=== PATIENT | female | born 1950 | race Caucasian/White ===

== ENCOUNTER 2023-01-31 22:58 | Emergency (ER) | payer MEDICARE, OTHER ==
[~2023-01-31] VITALS: Ht 172.7 cm; Wt 95.3 kg
[~2023-01-31 22:58] MED LIST: AUBAGIO PO; BACL20TA PO; BISA10SU8 RC; CYCL30DR EACHEYE; DIAZ5TAB PO; DIPH25CA83 PO; DOCU250C14 PO; FENT1PAT10 TD; HYDR4TAB57 PO; MAG30ORA PO; MAGN400O21 PO; NA P133E RC; OXYC1TAB8 PO; PREG50CA PO; RIVA10TA PO; SENN-261 PO; ZOLP5TAB8 PO
[2023-01-31] MEDS ORDERED: IV NS 0.9% 1,000 ML IV ONE (23:30)
[2023-02-01 00:22] LABS: BASOPHILS # (AUTO) 0.1 K/uL (0.0-0.2); BASOPHILS % (AUTO) 1.2 % (0.0-2.0); EOSINOPHILS # (AUTO) 0.3 K/uL (0.0-0.7); EOSINOPHILS % (AUTO) 3.8 % (0.0-6.0); HEMATOCRIT 41 % (33-45); HEMOGLOBIN 13.2 g/dL (11.5-14.8); LYMPHOCYTES # (AUTO) 2.5 K/uL (0.8-4.8); LYMPHOCYTES % (AUTO) 35.8 % (20.0-44.0); MEAN CORPUSCULAR HEMOGLOBIN 28 PG (26.0-33.0); MEAN CORPUSCULAR HGB CONC 32 g/dl (31.0-36.0); MEAN CORPUSCULAR VOLUME 86 fL (82-100); MONOCYTES # (AUTO) 1.2 K/uL (0.1-1.30); MONOCYTES % (AUTO) 16.9 % (2.0-12.0); NEUTROPHILS % (AUTO) 42.3 % (43.0-81.0); PLATELET COUNT (AUTO) 271 K/uL (150-450); RED BLOOD CELL COUNT(AUTO) 4.76 MIL/uL (4.0-5.2); RED CELL DISTRIBUTION WIDTH 17.6 % (11.5-15.0)
[2023-02-01] MEDS ORDERED: IV NS 0.9% 1,000 ML BAG IV ONE (00:30)
[2023-02-01 00:41] LABS: APPEARANCE,URINE CLEAR (CLEAR); BILIRUBIN,URINE NEGATIVE (NEGATIVE); BLOOD, URINE TRACE-INTA Ery/uL (NEGATIVE); COLOR,URINE YELLOW (YELLOW); KETONES,URINE NEGATIVE (NEGATIVE); LEUKOCYTE ESTERASE ,URINE TRACE (NEGATIVE); NITRITE, URINE POSITIVE (NEGATIVE); PROTEIN,URINE NEGATIVE (NEGATIVE); UGLUCOSE NEGATIVE (NEGATIVE); UROBILINOGEN,URINE 0.2 EU/dL (0.2)
[2023-02-01 01:44] LABS: ALANINE AMINOTRANSFERASE 23 U/L (12-78); ALBUMIN 3.5 g/dL (3.4-5.0); ALKALINE PHOSPHATASE 114 U/L (46-116); ASPARTATE AMINOTRANSFERASE 36 U/L (15-37); BILIRUBIN,TOTAL 0.6 mg/dL (0.2-1.0); CALCIUM, SERUM 9.3 mg/dL (8.5-10.1); CARBON DIOXIDE 26 mmol/L (21-32); CHLORIDE 101 mmol/L (98-107); CREATININE 0.9 mg/dL (0.6-1.3); GLUCOSE 111 mg/dL (74-106); POTASSIUM 2.9 mmol/L (3.5-5.1); SODIUM SERUM 140 mmol/L (136-145); TOTAL PROTEIN, SERUM 7.1 g/dL (6.4-8.2); UREA NITROGEN, BLOOD 33 mg/dL (7-18)
[2023-02-01 01:48] LABS: SALICYLATE 1.5 mg/dL (2.8-20.0)
[2023-02-01 01:49] LABS: ACETAMINOPHEN <10 ug/ml (10-30)
[2023-02-01] MEDS ORDERED: POTASSIUM CHLORIDE 20 MEQ TAB.PRT.SR PO ONE ×2 (02:00→02:20)
[2023-02-01 02:09] LABS: BARBITURATE, URINE NEGATIVE (NEGATIVE)
[2023-02-01 02:10] LABS: AMPHETAMINE, URINE NEGATIVE (NEGATIVE); BENZODIAZEPINE, URINE NEGATIVE (NEGATIVE); CANNABINOID, URINE NEGATIVE (NEGATIVE); COCCAINE, URINE NEGATIVE (NEGATIVE); OPIATE, URINE POSITIVE (NEGATIVE); PHENCYCLIDINE SCREEN,URINE NEGATIVE (NEGATIVE)
[2023-02-01 02:16] LABS: ADD URINE CULTURE YES; BACTERIA,URINE 2+ /HPF (None Seen); RBC,URINE 0-2 /HPF (0-2)
[2023-02-01] MEDS ORDERED: POTASSIUM CHLORIDE 10 MEQ TABLET.SA ONE (02:20)
[2023-02-01 02:34] LABS: EOSINOPHILS % (MANUAL) 4 % (0-4); LYMPHOCYTES % (MANUAL) 35 % (16-48); MONOCYTES % (MANUAL) 21 % (0-11.0); NEUTROPHILS % (MANUAL) 40 (42-76); PLATELET ESTIMATE ADEQUATE
[2023-02-01] MEDS ORDERED: NALO4SPR BNOSTRILS (04:01)
[2023-02-01 04:55] VITALS: BP 140/97; TEMP 98.1; O2SAT 98
[2023-02-06] MEDS ORDERED: PREG200C PO (15:09)
== END 2023-02-01 04:55 | disposition home or self-care (01) ==
LOC: ER 23:05
DX: T40.601A Poisoning by unspecified narcotics, accidental (unintentional), initial encounter (principal); R53.1 Weakness; R51.9 Headache, unspecified; I10 Essential (primary) hypertension; E11.9 Type 2 diabetes mellitus without complications; Z98.890 Other specified postprocedural states; Z79.899 Other long term (current) drug therapy; Z88.2 Allergy status to sulfonamides; Z88.1 Allergy status to other antibiotic agents; Y92.89 Other specified places as the place of occurrence of the external cause
CPT/HCPCS: 99285; 70450; 71045; 93005; 36415; 80307; 96360; 85025; 80048; 87086; 80076; 83735; 81001; 80143; 85007; J7030

== ENCOUNTER 2023-02-04 10:11 | Inpatient (IN) | payer MEDICARE, OTHER ==
[~2023-02-04] VITALS: Ht 172.7 cm; Wt 93.0 kg
[~2023-02-04 10:11] MED LIST changes: +NALO4SPR BNOSTRILS
[2023-02-04 11:04] LABS: CALCIUM, SERUM 9.2 mg/dL (8.5-10.1); CARBON DIOXIDE 24 mmol/L (21-32); CHLORIDE 104 mmol/L (98-107); CREATININE 1.1 mg/dL (0.6-1.3); GLUCOSE 106 mg/dL (74-106); SODIUM SERUM 141 mmol/L (136-145); UREA NITROGEN, BLOOD 27 mg/dL (7-18)
[2023-02-04 11:14] LABS: POTASSIUM 2.8 mmol/L (3.5-5.1)
[2023-02-04 11:18] LABS: ALANINE AMINOTRANSFERASE 20 U/L (12-78); ALBUMIN 3.4 g/dL (3.4-5.0); ALKALINE PHOSPHATASE 101 U/L (46-116); ASPARTATE AMINOTRANSFERASE 22 U/L (15-37); BILIRUBIN,DIRECT 0.1 mg/dL (0.0-0.2); BILIRUBIN,TOTAL 0.5 mg/dL (0.2-1.0); NT-PRO BNP 1226 pg/mL (0-125); TOTAL PROTEIN, SERUM 6.8 g/dL (6.4-8.2)
[2023-02-04 11:21] LABS: BASOPHILS % (AUTO) 0.7 % (0.0-2.0); EOSINOPHILS # (AUTO) 0.3 K/uL (0.0-0.7); HEMATOCRIT 41 % (33-45); HEMOGLOBIN 13.2 g/dL (11.5-14.8); LYMPHOCYTES # (AUTO) 1.7 K/uL (0.8-4.8); LYMPHOCYTES % (AUTO) 26.5 % (20.0-44.0); MEAN CORPUSCULAR HEMOGLOBIN 28 PG (26.0-33.0); MEAN CORPUSCULAR HGB CONC 32 g/dl (31.0-36.0); MEAN CORPUSCULAR VOLUME 87 fL (82-100); MONOCYTES # (AUTO) 0.8 K/uL (0.1-1.30); MONOCYTES % (AUTO) 12.9 % (2.0-12.0); NEUTROPHILS # (AUTO) 3.6 K/uL (1.8-8.9); NEUTROPHILS % (AUTO) 55.9 % (43.0-81.0); PLATELET COUNT (AUTO) 248 K/uL (150-450); RED BLOOD CELL COUNT(AUTO) 4.72 MIL/uL (4.0-5.2); RED CELL DISTRIBUTION WIDTH 17.4 % (11.5-15.0); WHITE BLOOD COUNT (AUTO) 6.4 K/uL (4.3-11.0)
[2023-02-04] MEDS ORDERED: ROSU10TA2 PO (11:55)
[2023-02-04] MEDS ORDERED: NAPR220T66 PO (11:55)
[2023-02-04] MEDS ORDERED: PREG200C PO (11:55)
[2023-02-04] MEDS ORDERED: TOPI100T PO (11:55)
[2023-02-04] MEDS ORDERED: CHOL200059 PO (11:55)
[2023-02-04] MEDS ORDERED: HYDR25TA4 PO (11:55)
[2023-02-04] MEDS ORDERED: CYAN200017 PO (11:55)
[2023-02-04] MEDS ORDERED: BIOTIN GUMMIES PO (11:55)
[2023-02-04] MEDS ORDERED: DIPH25TA25 PO (11:55)
[2023-02-04] MEDS ORDERED: OXYC-133 PO (11:55)
[2023-02-04] MEDS ORDERED: KESIMPTA IJ (11:55)
[2023-02-04] MEDS ORDERED: TIZA4TAB11 PO (11:55)
[2023-02-04] MEDS ORDERED: [UNRECOGNIZED DRUG - OTHER] PO (11:55)
[2023-02-04] MEDS ORDERED: LACT1CAP97 PO (11:55)
[2023-02-04] MEDS ORDERED: POTASSIUM CHLORIDE 20 MEQ POWDER PACKET PO ONE (12:00)
[2023-02-04] MEDS ORDERED: POTASSIUM CHLORIDE 20 MEQ POWDER PACKET ONE (12:17)
[2023-02-04] MEDS ORDERED: oxyCODONE/APAP (5/325 MG) 1 UDTAB TABLET PO ONE (13:30)
[2023-02-04] MEDS ORDERED: oxyCODONE/APAP (5/325 MG) 1 UDTAB TABLET ONE (13:35)
[2023-02-04 16:30] VITALS: BP 152/91; TEMP 97.5; O2SAT 98
[2023-02-04] MEDS ORDERED: ONDANSETRON HCL/PF 4 MG/2 ML VIAL IVP PRN (17:00)
[2023-02-04] MEDS ORDERED: ACETAMINOPHEN 325 MG TABLET PO PRN (17:00)
[2023-02-04] MEDS ORDERED: ZOLPIDEM TARTRATE 5 MG TABLET PO PRN (17:00)
[2023-02-04] MEDS ORDERED: MAGNESIUM HYDROXIDE 30 ML UDC PO PRN (17:00)
[2023-02-04] MEDS ORDERED: IV 1/2NS 1000 ML 1,000 ML IV PRN (17:00)
[2023-02-04] MEDS ORDERED: MAG HYDROX/AL HYDROX/SIMETH 30 ML UDC PO PRN (17:00)
[2023-02-04] MEDS ORDERED: Z GUARD REMEDY 4 OZ OINT TP PRN (17:00)
[2023-02-04] MEDS: ENOXAPARIN SODIUM 40 MG/0.4 ML DISP.SYRIN SQ SCH ×2 (18:45→18:52)
[2023-02-04] MEDS ORDERED: *INSULIN REGULAR(HUMULIN R)HUM 100 UNIT/ML VIAL SQ PRN (19:30)
[2023-02-04] MEDS ORDERED: DEXTROSE 50%-WATER 50 ML DISP.SYRIN IV PRN (19:30)
[2023-02-04 20:00] VITALS: BP 121/63; TEMP 98; O2SAT 96
[2023-02-04] MEDS: oxyCODONE/APAP (5/325 MG) 1 UDTAB TABLET PO SCH (20:22)
[2023-02-04] MEDS ORDERED: PREGABALIN 100 MG CAPSULE PO SCH (21:00)
[2023-02-04] MEDS: BLOOD SUGAR DIAGNOSTIC 1 EACH STRIP VI SCH (22:02)
[2023-02-04] MEDS ORDERED: MORPHINE SULFATE IR 15 MG TABLET PO PRN (22:30)
[2023-02-04] MEDS: MORPHINE SULFATE SR 15 MG TABLET.SA PO SCH (22:57)
[2023-02-05] VITALS (7 sets, daily range): BP systolic 117–145; BP diastolic 53–111; TEMP 97.7–98.6; O2SAT 94–98
[2023-02-05] MEDS: BLOOD SUGAR DIAGNOSTIC 1 EACH STRIP VI SCH ×4 (07:36→21:35)
[2023-02-05 07:51] LABS: BASOPHILS % (AUTO) 0.7 % (0.0-2.0); EOSINOPHILS # (AUTO) 0.3 K/uL (0.0-0.7); HEMATOCRIT 38 % (33-45); HEMOGLOBIN 12.3 g/dL (11.5-14.8); LYMPHOCYTES # (AUTO) 1.3 K/uL (0.8-4.8); LYMPHOCYTES % (AUTO) 24.2 % (20.0-44.0); MEAN CORPUSCULAR HEMOGLOBIN 28 PG (26.0-33.0); MEAN CORPUSCULAR HGB CONC 33 g/dl (31.0-36.0); MEAN CORPUSCULAR VOLUME 86 fL (82-100); MONOCYTES # (AUTO) 0.8 K/uL (0.1-1.30); MONOCYTES % (AUTO) 14.6 % (2.0-12.0); NEUTROPHILS # (AUTO) 3.1 K/uL (1.8-8.9); NEUTROPHILS % (AUTO) 55.5 % (43.0-81.0); PLATELET COUNT (AUTO) 227 K/uL (150-450); RED BLOOD CELL COUNT(AUTO) 4.39 MIL/uL (4.0-5.2); RED CELL DISTRIBUTION WIDTH 17.6 % (11.5-15.0); WHITE BLOOD COUNT (AUTO) 5.5 K/uL (4.3-11.0)
[2023-02-05 07:53] LABS: CALCIUM, SERUM 8.4 mg/dL (8.5-10.1); CARBON DIOXIDE 26 mmol/L (21-32); CHLORIDE 107 mmol/L (98-107); CREATININE 0.8 mg/dL (0.6-1.3); GLUCOSE 87 mg/dL (74-106); PHOSPHORUS 4.2 mg/dL (2.5-4.9); POTASSIUM 3.3 mmol/L (3.5-5.1); SODIUM SERUM 143 mmol/L (136-145); UREA NITROGEN, BLOOD 25 mg/dL (7-18)
[2023-02-05 08:39] LABS: THYROID STIMULATING HORMONE 2.712 uIU/mL (0.358-3.74)
[2023-02-05] MEDS ORDERED: [UNRECOGNIZED DRUG - OTHER] PO SCH (09:00)
[2023-02-05] MEDS: ASPIRIN 81 MG TAB.CHEW PO SCH (09:05)
[2023-02-05] MEDS: PREGABALIN 100 MG CAPSULE PO SCH ×3 (09:05→16:13)
[2023-02-05] MEDS: POTASSIUM CHLORIDE 20 MEQ TAB.PRT.SR PO SCH ×3 (09:05→12:38)
[2023-02-05] MEDS: ATORVASTATIN 10 MG TABLET PO SCH (09:05)
[2023-02-05] MEDS: PANTOPRAZOLE 40 MG TABLET.DR PO SCH (09:06)
[2023-02-05] MEDS: CHOLECALCIFEROL 1,000 UNIT TABLET (VIT D3) PO SCH (09:06)
[2023-02-05] MEDS: CYANOCOBALAMIN 500 MCG TABLET PO SCH ×2 (09:06→16:13)
[2023-02-05] MEDS: oxyCODONE/APAP (5/325 MG) 1 UDTAB TABLET PO SCH ×4 (09:06→21:33)
[2023-02-05] MEDS: MORPHINE SULFATE SR 15 MG TABLET.SA PO SCH ×2 (09:06→16:12)
[2023-02-05 09:07] LABS: THYROID STIMULATING HORMONE 2.784 uIU/mL (0.358-3.74)
[2023-02-05] MEDS: TOPIRAMATE 100 MG TABLET PO SCH ×2 (09:13→16:12)
[2023-02-06] VITALS: BP 110/69; TEMP 98; O2SAT 96
[2023-02-06] MEDS ORDERED: oxyCODONE/APAP (5/325 MG) 1 UDTAB TABLET PO PRN
[2023-02-06 04:00] VITALS: BP 121/71; TEMP 98.2; O2SAT 97
[2023-02-06] MEDS: INSULIN REGULAR, HUMAN 100 UNIT/ML 3 ML VIAL SQ PRN ×2 (06:35→12:33)
[2023-02-06] MEDS: BLOOD SUGAR DIAGNOSTIC 1 EACH STRIP VI SCH ×2 (06:35→12:32)
[2023-02-06 06:56] LABS: BASOPHILS % (AUTO) 0.9 % (0.0-2.0); EOSINOPHILS # (AUTO) 0.3 K/uL (0.0-0.7); EOSINOPHILS % (AUTO) 6.7 % (0.0-6.0); HEMATOCRIT 37 % (33-45); LYMPHOCYTES # (AUTO) 1.7 K/uL (0.8-4.8); LYMPHOCYTES % (AUTO) 34.3 % (20.0-44.0); MEAN CORPUSCULAR HEMOGLOBIN 28 PG (26.0-33.0); MEAN CORPUSCULAR HGB CONC 33 g/dl (31.0-36.0); MEAN CORPUSCULAR VOLUME 86 fL (82-100); MONOCYTES # (AUTO) 0.8 K/uL (0.1-1.30); MONOCYTES % (AUTO) 16.2 % (2.0-12.0); NEUTROPHILS % (AUTO) 41.9 % (43.0-81.0); PLATELET COUNT (AUTO) 221 K/uL (150-450); RED CELL DISTRIBUTION WIDTH 17.3 % (11.5-15.0); WHITE BLOOD COUNT (AUTO) 4.9 K/uL (4.3-11.0)
[2023-02-06 07:00] VITALS: BP 135/85; TEMP 97.9; O2SAT 97
[2023-02-06 07:18] LABS: ALANINE AMINOTRANSFERASE 21 U/L (12-78); ALBUMIN 2.6 g/dL (3.4-5.0); ALKALINE PHOSPHATASE 84 U/L (46-116); ASPARTATE AMINOTRANSFERASE 29 U/L (15-37); BILIRUBIN,TOTAL 0.3 mg/dL (0.2-1.0); CALCIUM, SERUM 8.5 mg/dL (8.5-10.1); CARBON DIOXIDE 26 mmol/L (21-32); CHLORIDE 108 mmol/L (98-107); CREATININE 0.9 mg/dL (0.6-1.3); GLUCOSE 89 mg/dL (74-106); PHOSPHORUS 3.7 mg/dL (2.5-4.9); POTASSIUM 3.9 mmol/L (3.5-5.1); SODIUM SERUM 143 mmol/L (136-145); TOTAL PROTEIN, SERUM 5.8 g/dL (6.4-8.2); UREA NITROGEN, BLOOD 20 mg/dL (7-18)
[2023-02-06] MEDS: PANTOPRAZOLE 40 MG TABLET.DR PO SCH (08:07)
[2023-02-06] MEDS: ATORVASTATIN 10 MG TABLET PO SCH (08:57)
[2023-02-06] MEDS: ASPIRIN 81 MG TAB.CHEW PO SCH ×2 (08:57→09:00)
[2023-02-06] MEDS: PREGABALIN 100 MG CAPSULE PO SCH ×2 (08:58→14:20)
[2023-02-06] MEDS: MORPHINE SULFATE SR 15 MG TABLET.SA PO SCH (08:58)
[2023-02-06] MEDS: TOPIRAMATE 100 MG TABLET PO SCH (08:58)
[2023-02-06] MEDS: CHOLECALCIFEROL 1,000 UNIT TABLET (VIT D3) PO SCH (08:59)
[2023-02-06] MEDS: CYANOCOBALAMIN 500 MCG TABLET PO SCH (08:59)
[2023-02-06] MEDS: oxyCODONE/APAP (5/325 MG) 1 UDTAB TABLET PO SCH ×2 (09:02→14:21)
[2023-02-06 10:57] LABS: EOSINOPHILS % (MANUAL) 4 % (0-4); LYMPHOCYTES % (MANUAL) 38 % (16-48); MONOCYTES % (MANUAL) 13 % (0-11.0); NEUTROPHILS % (MANUAL) 45 (42-76); PLATELET ESTIMATE ADEQUATE
[2023-02-06] MEDS ORDERED: PREG100C PO (15:07)
[2023-02-06] MEDS ORDERED: PREG200C PO (15:09)
== END 2023-02-06 16:40 | disposition home or self-care (01) | DRG 281 ==
LOC: ER 10:11 → TELE 16:05
PROVIDERS: ADMIT Student in an Organized Health Care Education/Training Program; ATTEND Student in an Organized Health Care Education/Training Program
DX: I95.1 Orthostatic hypotension (principal); I21.A1 Myocardial infarction type 2; F11.20 Opioid dependence, uncomplicated; G35 Multiple sclerosis; I10 Essential (primary) hypertension; E11.9 Type 2 diabetes mellitus without complications; M19.90 Unspecified osteoarthritis, unspecified site; Z96.641 Presence of right artificial hip joint; Z96.651 Presence of right artificial knee joint; Z90.49 Acquired absence of other specified parts of digestive tract; Z88.2 Allergy status to sulfonamides; Z88.6 Allergy status to analgesic agent; Z91.018 Allergy to other foods; Z79.01 Long term (current) use of anticoagulants; Z79.899 Other long term (current) drug therapy; G89.29 Other chronic pain; E87.6 Hypokalemia; E86.0 Dehydration; M85.80 Other specified disorders of bone density and structure, unspecified site; E66.9 Obesity, unspecified; I25.10 Atherosclerotic heart disease of native coronary artery without angina pectoris; Z86.73 Personal history of transient ischemic attack (TIA), and cerebral infarction without residual deficits; Z82.49 Family history of ischemic heart disease and other diseases of the circulatory system; R79.89 Other specified abnormal findings of blood chemistry; Z87.09 Personal history of other diseases of the respiratory system; Z93.0 Tracheostomy status
CPT/HCPCS: 36415; 71045-TC; 80048-TC; 80053-TC; 80061-TC; 80076-TC; 82962-TC; 83735-TC; 83880; 84100-TC; 84439-TC; 84443-TC; 84484-TC; 85025-TC; 93307-TC; 97112-TC; 97530-TC; A4223; G0378; J1650; J1815; J3490

== ENCOUNTER 2025-01-25 19:24 | Emergency (ER) | payer MEDICARE, OTHER ==
[~2025-01-25] VITALS: Ht 175.3 cm; Wt 108.9 kg
[~2025-01-25 19:24] MED LIST changes: -AUBAGIO PO; -BACL20TA PO; +BIOTIN GUMMIES PO; -BISA10SU8 RC; +CHOL200059 PO; +CYAN200017 PO; -CYCL30DR EACHEYE; -DIAZ5TAB PO; -DIPH25CA83 PO; +DIPH25TA25 PO; -DOCU250C14 PO; -FENT1PAT10 TD; +HYDR25TA4 PO; -HYDR4TAB57 PO; +KESIMPTA IJ; +LACT1CAP97 PO; -MAG30ORA PO; -MAGN400O21 PO; -NA P133E RC; -NALO4SPR BNOSTRILS; +NAPR220T66 PO; +OXYC-133 PO; -OXYC1TAB8 PO; +PREG200C PO; -PREG50CA PO; -RIVA10TA PO; +ROSU10TA2 PO; -SENN-261 PO; +TIZA4TAB11 PO; +TOPI100T PO; -ZOLP5TAB8 PO; +[UNRECOGNIZED DRUG - OTHER] PO
[2025-01-25 21:44] LABS: APPEARANCE,URINE SLIGHTLY CLOUDY (CLEAR); BLOOD, URINE NEGATIVE Ery/uL (NEGATIVE); LEUKOCYTE ESTERASE ,URINE 2+ (NEGATIVE); NITRITE, URINE POSITIVE (NEGATIVE); UGLUCOSE NEGATIVE (NEGATIVE)
[2025-01-25] MEDS ORDERED: LEVO500T90 PO (21:48)
[2025-01-25 21:55] LABS: ADD URINE CULTURE YES; SQUAMOUS EPITHELIAL CELL,UR Many /HPF (None Seen)
[2025-01-25 23:04] VITALS: BP 135/81; TEMP 98.7; O2SAT 95
== END 2025-01-25 23:05 | disposition home or self-care (01) ==
LOC: ER 19:30
DX: N39.0 Urinary tract infection, site not specified (principal); N31.9 Neuromuscular dysfunction of bladder, unspecified; I11.9 Hypertensive heart disease without heart failure; E11.9 Type 2 diabetes mellitus without complications; M19.90 Unspecified osteoarthritis, unspecified site; Z79.899 Other long term (current) drug therapy; Z88.2 Allergy status to sulfonamides; Z88.6 Allergy status to analgesic agent; Z90.49 Acquired absence of other specified parts of digestive tract; Z96.641 Presence of right artificial hip joint
CPT/HCPCS: 81001; 87086-TC; 87186-TC